=== PATIENT | female | born 1970 | race African-American/Black ===

== ENCOUNTER 2017-08-19 09:17 | Outpatient (CLI) | payer BC ==
--- NOTE | 2017-08-19 09:53 | MMO ---
DIAGNOSTIC RIGHT MAMMOGRAMS: History: Diagnostic images performed as recommended from the screening study of 06-11-17. There was qu estion of asymmetries in the right breast on that exam. This study is interpreted with the assistance of computer aided detection. FINDINGS: Scattered fibroglandular densities. There is no evidence of focal mass, distortion, or suspicious ricci cification. No suspicious findings seen on diagnostic views. Recommend one year follow up. IMPRESSION: BIRADS category 2 - benign findings. POS: [facility]
== END 2017-08-19 09:18 | disposition home or self-care (01) ==
LOC: MAMMO 09:17
DX: R92.2 Inconclusive mammogram (principal)
CPT/HCPCS: G0206-RT